=== PATIENT | male | born 1955 | race African-American/Black ===

== ENCOUNTER 2016-08-05 03:17 | Inpatient (IN) | payer OTHER ==
--- NOTE | ~2016-08-05 | HP ---
History And Physical [place] [id number] [facility] [place]. [address] NAME: MARLENE CONTRERAS JR : 53 STATUS : ADM IN [facility]#: [id number] AGE: 61 ADM/REG DATE : 08/05/16 MR#: [id number] REPORT SERV DATE: 08/05/16 DICTATED BY: SAMANTHA CHAUDHARY DATE: 08/05/16 REPORT STATUS : Draft TRANSCRIBED BY: MODAmari DATE: 08/05/16 DATE OF ADMISSION: 08/05/2016 REASON FOR ADMISSION: Angioedema. HISTORY: Mr. Contreras is a 61-year-old male who has hypertension, angioedema for the past 5 years, but remained on losartan who came to the ED today with the swelling of his lips and tongue for one day. The patient had recently been prescribed Zanaflex for hand swelling, which he attributed to having slept on his hand with inability to move his fingers. Upon arrival here, he received Benadryl and Solu-Medrol with some benefit. He says he did not know the cause of his first spell, but review of old record showed that he had been on lisinopril at that previous time. He does acknowledge that the spell was a whole lot worse than this particular episode, and he required intubation then. At the present time, he denies any pain, nausea, vomiting or dry mouth. He says his breathing is okay but does have difficulty speaking. He is able to swallow. No nausea or vomiting. No headaches. He did have some chest tightness earlier but has since resolved. Shortness of breath is also better than it was earlier, but he denies any cough, fever, or chills, although he may have had a subjective fever two days ago. The patient denies any gastrointestinal or genitourinary complaints. No bleeding. No focal neurologic complaints other than some numbness in the finger tips in the aforementioned hand. REVIEW OF SYSTEMS: Negative. PAST MEDICAL HISTORY: As mentioned above. History of hepatitis C, history of stroke. MEDICATIONS: Medication list is pending. We knew it included the losartan and the Zanaflex. ALLERGIES: PREVIOUS ALLERGIES KNOWN TO BE LISINOPRIL. FAMILY HISTORY: Positive for diabetes and hypertension. SOCIAL HISTORY: The patient denies tobacco, alcohol, or drugs. PHYSICAL EXAMINATION: VITAL SIGNS: On presentation, blood pressure 99/53, pulse 89, respirations 22, afebrile, and saturating 100%. GENERAL: Comfortable black male, oriented x3. No apparent distress. HEENT: Pupils are equal to light. Extraocular movements are intact. He had very swollen lips but actually normal internal mucous membranes. Tongue was normal. NECK: Revealed no jugular venous distention, carotid bruits, lymphadenopathy, or goiter. CARDIAC EXAM: Regular rate and rhythm. No murmurs, gallops, or rubs. LUNGS: Clear to auscultation bilaterally. Good excursion. ABDOMEN: Distended, tympanic. There was some dullness to percussion in the suprapubic area with tenderness in that location. EXTREMITIES: No cyanosis, clubbing, or edema. He had diminished pulses and capillary History And Physical [address] [address] NAME: MARLENE CONTRERAS JR : 53 STATUS : ADM IN [facility]#: [id number] AGE: 61 ADM/REG DATE : 08/05/16 MR#: [id number] REPORT SERV DATE: 08/05/16 DICTATED BY: SAMANTHA CHAUDHARY DATE: 08/05/16 REPORT STATUS : Draft TRANSCRIBED BY: JESSICA DATE: 08/05/16 refill. NEUROLOGIC: Normal sensory function in all four extremities. SKIN: Warm and dry. PSYCHIATRIC: Appropriate. LABORATORY: Sodium 134, potassium 3.7, chloride 97, bicarb 23, BUN 32, creatinine 3.9, glucose 90, albumin 3.0, calcium 6.9. White count 5000, H and H 01/28, platelets 177. ASSESSMENT AND PLAN: 1. Angioedema, possibly due to receptor blockers, anaphylaxis, hold all medications. Steroids to be given. H1 and H2 blockers have been initiated, but tenture of time is likely the best therapy. 2. Acute kidney injury versus progressive renal insufficiency. Creatinine was normal two years ago. The patient continues to be mildly volume depleted. We will hydrate him. I am concerned about the possibility of urinary obstruction and Huber catheter placement. Ultrasound will be done. We will check SPEP, sedimentation rate, and fractional excretion of sodium. Question whether the hepatitis C may be the source of his renal insufficiency or whether he may have been on some medications. Losartan obviously will be discontinued. We will follow expectantly and have Nephrology see him if indicated. We noticed he also has hypocalcemia, which may be due to secondary hypovitaminosis D with subsequent hypoparathyroidism. We will check PTH and vitamin D levels. 3. Anemia, Probably from his chronic kidney disease, although we should check reticulocyte count, iron, and B12 in addition to the aforementioned SPEP. SVETLANA/JESSICA Samantha Chaudhary M.D. / [id number] CC: Daniel Champagne M.D.
--- NOTE | ~2016-08-05 | CN ---
Consultation Report [facility] [address] [place]. [address] NAME: MARLENE CONTRERAS JR : 53 STATUS : ADM IN PAT#: [id number] AGE: 61 ADM/REG DATE : 08/05/16 MR#: [id number] REPORT SERV DATE: 08/06/16 DICTATED BY: DATE: REPORT STATUS : Draft TRANSCRIBED BY: MODL DATE: 08/05/16 DATE OF CONSULTATION: REQUESTING: Nola Harmon, nurse practitioner. REASON FOR CONSULTATION: Acute kidney injury versus progressive chronic kidney disease. HISTORY OF PRESENT ILLNESS: A very pleasant 61-year-old male patient presents to [facility] on 08/05/2016 for evaluation to hospitalist. He was recently initiated on Zanaflex which was initiated due to right upper extremity pain and swelling. According to his family, the patient fortunately developed an angioedema reaction, and as he progressively had lip and facial swelling with increasing difficulty breathing, he presented to [facility] for evaluation. He was aggressively dosed with Solu- Medrol and Benadryl and placed in an inpatient setting for further evaluation and support. We are asked to evaluate the patient as his serum creatinine is noted to be at 3.88 at time of request for evaluation. He is known to be chronically be maintained in the outpatient setting on an ARB/HCTZ and has previously according to dictations from Dr. Favian Patel been on an IRLANDA inhibitor which he unfortunately had "an allergic" reaction to. Creatinine baseline in 2014 appears to be sub 1.0, is at 3.88 this afternoon, and progressively down at 3.46 on evaluation with a CO2 of 21, magnesium 1.1 and a potassium of 4.1 at time of dictation. The patient has been initiated on normal saline fluid administration. He is awake and alert, sitting at the bedside. He has no respiratory difficulty but does have noticeable facial and lip swelling at point of evaluation. Renal ultrasound has been undertaken and is negative for acute findings with the exception of a right renal nonobstructing stone and benign right renal cyst. The patient's family is present during evaluation and participates in HPI. PAST MEDICAL HISTORY: Positive for hepatitis C, previous CVA, question of possible BPH. No reports of nausea, vomiting, or diarrhea. He is also known to have a positive history for hypertension, recent right upper extremity swelling and pain as reported by the patient during HPI. FAMILY HISTORY: Negative for chronic kidney disease or end-stage renal disease. SOCIAL HISTORY: No ETOH. No illicit drugs. Remote history of tobacco, smoking approximately 1 pack per day, multiple years ago. Has since stopped smoking greater than 20 years. ALLERGIES: HE LISTS ALLERGIES TO TIZANIDINE. MEDICATIONS: Active medications include ASA 81 mg daily, Neurontin 300 mg p.o. at bedtime, [place] 1 tablet p.o. t.i.d. p.r.n., losartan/HCTZ 1 tablet p.o. daily at 100/12.5, meloxicam 15 mg daily, Zanaflex 4 mg p.o. t.i.d. p.r.n. REVIEW OF SYSTEMS: Consultation Report [address] [place]. [address] NAME: MARLENE CONTRERAS JR : 53 STATUS : ADM IN [facility]#: [id number] AGE: 61 ADM/REG DATE : 08/05/16 MR#: [id number] REPORT SERV DATE: 08/06/16 DICTATED BY: DATE: REPORT STATUS : Draft TRANSCRIBED BY: MODL DATE: 08/05/16 Review of systems is completed. Please see HPI for pertinent details. PHYSICAL EXAMINATION: VITAL SIGNS: Blood pressure 174/90, respiratory rate 19, heart rate at 90 beats per minute and regular, 100% on room air, temperature 99.8 degrees. GENERAL: He is awake, alert, oriented x3, in no acute distress during evaluation. HEENT: Normocephalic and atraumatic. Noticeable swelling of his facial area particularly in his lips and tongue. He is in no respiratory distress on evaluation. NECK: Supple without thyromegaly. No JVD or mass. CHEST: Shows positive S1 and S2. No rubs or gallops. LUNGS: Diminished. Clear to auscultation throughout. Otherwise expansion normal effort. Normal bilaterally. GI: Examination shows positive bowel sounds in all four quadrants. No appreciable mass or tenderness. : Examination is deferred. EXTREMITIES: Show positive pulses to all four extremities. No clubbing, cyanosis nor edema. NEUROLOGIC: Appears to be grossly intact. Nonfocal. SKIN: Warm, dry, intact visualized surfaces. No rash, lesions, or ecchymosis. PSYCHIATRIC: He has appropriate mood and affect, and in no acute distress. LABORATORY DATA: Pertinent laboratories and imaging to this evaluation are as follows. Most recent electrolyte profile, sodium 132, potassium 4.1, chloride 100, CO2 of 21, BUN 34, creatinine 3.46, reflected GFR at 21 mL/minute. Glucose of 149, calcium 7.5, magnesium 1.1. Urine sodium 34, urine creatinine 64.6, urine urea at 206. Urinalysis negative for protein, glucose, ketones, small amount of blood, minimal bacteria and rare mucus. Renal ultrasound is negative for acute findings as listed in HPI. IMPRESSION AND PLAN: This is a 61-year-old, male patient, admitted to the Hospitalist Service for an acute occurrence of angioedema which is felt to be secondary to dosing of Zanaflex. He is chronically maintained on ARB/HCTZ and Mobic in the outpatient setting with labile hypertension, and he is noted to have experienced some hypotension during his inpatient stay with blood pressure readings as low as 99 systolic. He has had a renal ultrasound which reveals no acute findings. However, given his smoking history and his labile hypertension, we would question the possibility of renal artery stenosis, and given his difficulty with nocturnal voiding, we had questioned also some level of urinary retention. Placed patient on strict I's and Os. Check his postvoid residual and place Huber catheter if needed. We will check Doppler. Meloxicam and ARB/HCTZ have been withheld appropriately. The patient is on IV fluids. We will continue to defer those to the Primary Service at this time. This injury is likely ATN relative secondary to relative hypotension with concomitant ARB/HCTZ/NSAID usage. We are hopeful of renal recovery. The patient presents at this time in no acute need for hemodialysis. Measures as listed above. Follow with serial laboratories and modify based on clinical presentation of the patient's laboratory results. Further consultation with renal attending. We appreciate consultation. We are glad to follow. Consultation Report [address] [place]. [address] NAME: MARLENE CONTRERAS TIARA : 53 STATUS : ADM IN PAT#: [id number] AGE: 61 ADM/REG DATE : 08/05/16 MR#: [id number] REPORT SERV DATE: 08/06/16 DICTATED BY: DATE: REPORT STATUS : Draft TRANSCRIBED BY: MODL DATE: 08/05/16 /JESSICA Raghavendra Resee NP / [id number]
--- NOTE | ~2016-08-05 | IDS ---
Interim Discharge Summary [facility] [address] [place]. [address] NAME: MARLENE LONGORIA JR : 53 STATUS : ADM IN LOC[facility]IN [facility]#: [id number] AGE: 61 ADM/REG DATE : 08/05/16 MR#: [id number] REPORT SERV DATE: 08/10/16 DICTATED BY: JUANY ALMEIDA DATE: 08/09/16 REPORT STATUS : Draft TRANSCRIBED BY: MODL DATE: 08/09/16 ADMISSION DATE: 08/05/2016 DISCHARGE DATE: The patient was admitted to the Hospitalist Service. CONSULTANTS: Raghavendra Reese, nurse practitioner for store shopper, Dr. Rudy Gracia. INTERIM DISCHARGE DIAGNOSES: 1. Angioedema, resolved. 2. Alcohol withdrawal and delirium tremens. 3. Acute encephalopathy secondary to alcohol withdrawal, improved. 4. Acute kidney injury, improved. 5. Hypertension. 6. Anemia. 7. Hepatitis C. 8. Vitamin B deficiency. IMAGING AND DIAGNOSTICS: 1. 08/05/2016, renal ultrasound showed nonobstructing right renal stone and small benign right renal cyst, otherwise negative study. 2. Renal artery duplex on 08/06/2016 revealed kidneys appear symmetric, normal, and nonobstructive. No evidence of renal artery stenosis. Suggested slight increase in resistive indices, lower pole the kidneys certainly compatible with early onset medical parenchymal kidney disease. LABORATORY STUDIES: 1. Renal function panel on 08/09/2016 reveals a sodium 146, potassium 4.3, chloride 114, CO2 of 26, BUN 29, creatinine 1.4, GFR 62, glucose 82, calcium 8.5, magnesium 1.5, phosphorus 2.7, and albumin 2.8. Most recent CBC today 08/09/2016 reveals a white count of 3.4, hemoglobin 9.6, hematocrit 29, platelets 173,000. 2. 08/05/2016, the calcium level of 7.3 and intact parathyroid hormone of 135.7. 3. 08/05/2016 vitamin B level of 11. HISTORY OF PRESENT ILLNESS: For complete history, please refer to admission H and P by Dr. Favian Patel. Briefly, Mr. Longoria is a 61-year-old gentleman with known history of hypertension and angioedema in the past, presented to the emergency room on 08/05/2016 with lip swelling and facial swelling. He had recently been prescribed Zanaflex for some right hand swelling by his primary care provider, Dr. Daniel Champagne. He was previously on lisinopril and he had a worse apparent angioedema episode in the past requiring intubation. He was admitted to the Hospitalist Service for further evaluation and treatment. HOSPITAL COURSE: Mr. Longoria was admitted to a telemetry bed with the initial diagnosis of angioedema and acute kidney injury. He was ordered IV fluids, a renal ultrasound to rule out hydronephrosis. He was given subcu heparin for DVT prophylaxis. He was also placed on Interim Discharge Summary [address] [place]. [address] NAME: MARLENE LONGORIA JR : 53 STATUS : ADM IN LOC[facility]IN [facility]#: [id number] AGE: 61 ADM/REG DATE : 08/05/16 MR#: [id number] REPORT SERV DATE: 08/10/16 DICTATED BY: JUANY ALMEIDA DATE: 08/09/16 REPORT STATUS : Draft TRANSCRIBED BY: JESSICA DATE: 08/09/16 IV Solu-Medrol 125 mg q.8 hours along with Pepcid 20 mg IV q.12 hours, and Benadryl 25 mg IV q.6 hours scheduled. I initially saw Mr. Longoria in the afternoon of 08/05/2016. He reported that his lip swelling and facial swelling was improving. He denied any shortness of breath or chest pain or belly pain. He was eating and drinking without difficulty. He did note that his urine output was not as much as he usually had at home. Renal ultrasound results are as above. His blood pressure on this date was 177/80 after initially being hypotensive slightly in the emergency room with blood pressure of 99/53. His home medications were all held on admission. A consult was placed to Nephrology on the afternoon of 08/05/2016 for his creatinine level of 3.88. He was also given p.r.n. hydralazine IV. He was seen on the afternoon of 08/05/2016 by Nephrology who placed him on amlodipine for his hypertension. On the 08/06/2016, his IV steroids were tapered. Overall, Mr. Longoria had improved significantly. He was placed n.p.o. after midnight on the 08/06/2016 for renal artery ultrasound to rule out stenosis with his hypertension. Results are as above. On the 08/07/2016, in the early afternoon, Mr. Longoria's nurse mentioned that he pulled out his IV. He was noted walking up and down the tena. Mr. Longoria's sister was in the room and stated that he was very upset that the patient called her and he was outside the hospital stating that he was near the [facility] when in actuality he was likely outside the hospital looking at the [facility] mistaking it for the [facility]. Upon my reassessment of the patient, he had upper extremity tremors, he was very anxious, and after speaking with Mr. Longoria's sister, she admitted to the fact that Mr. Longoria drinks a lot. She states that he drinks at least a quart of gin or other hard liquor on a daily basis when in fact that he denied any alcohol intake when he was admitted through the emergency room. Therefore, alcohol withdrawal management protocol was started. In addition, his IV Benadryl, IV Pepcid, and IV prednisone were discontinued on this date. On the 08/08/2016, Mr. Longoria was cooperative, however, only oriented to himself and the year he was still confused as to the place. Mr. Longoria's sister was very concerned with the patient returning to her home in the current state. Hence, she was requesting some alcohol rehab for the patient at discharge. This was explained that this would need to be volunteering for the patient. On 08/09/2016, Mr. Loyds encephalopathy improved. He was alert and oriented to self and place. His angioedema had resolved. We were tapering his alcohol withdrawal protocol to low levels earlier in the day, and later in the afternoon, he was started on Librium 5 mg b.i.d. and Ativan was changed to p.r.n. with the discontinuation of the protocol with hopes that he will be discharged to home on 08/10/2016. He currently lives with his sister who is very supportive. Family has requested home health care for assistance with the patient at the time of discharge. Nephrology has signed off and have requested outpatient followup. We will start some vitamin B replacement today and continue his amlodipine for his hypertension. He will follow up with his primary care provider after discharge, Dr. Daniel Champagne, and again outpatient followup with Nephrology. EZ/JESSICA Nola Almeida, [facility]- / [id number] Interim Discharge Summary [address] [address] NAME: MARLENE LONGORIA JR : 53 STATUS : ADM IN PAT#: [id number] AGE: 61 ADM/REG DATE : 08/05/16 MR#: [id number] REPORT SERV DATE: 08/10/16 DICTATED BY: JUANY ALMEIDA DATE: 08/09/16 REPORT STATUS : Draft TRANSCRIBED BY: JESSICA DATE: 08/09/16 CC: Alice Gutierrez MARK
--- NOTE | ~2016-08-05 | DS ---
Discharge Summary [facility] [address] [place]. [address] NAME: MARLENE CONTRERAS JR : 53 STATUS : DIS IN PAT#: [id number] AGE: 61 ADM/REG DATE : 08/05/16 MR#: [id number] REPORT SERV DATE: 08/11/16 DICTATED BY: SAMANTHA CHAUDHARY DATE: 08/10/16 REPORT STATUS : Draft TRANSCRIBED BY: MODL DATE: 08/10/16 ADMISSION DATE: 08/05/2016 DISCHARGE DATE: 08/10/2016 PRINCIPAL DIAGNOSIS: Acute angioedema secondary to losartan versus Zanaflex. SECONDARY DIAGNOSES: Alcohol abuse with withdrawal and anemia, hypertension, acute kidney injury, resolved. HISTORY OF PRESENT ILLNESS: Please see my dictation on 08/05/2016. HOSPITAL COURSE: Please see interim summary by LEILA Naik on 08/09/2016. Subsequent hospital course, patient actually has already met the goals of discharge planning. He had been converted from Ativan to Librium and despite a major drop in the milligram, potency of the benzodiazepines from 2 mg of Ativan every 2 hours to 5 mg oral Librium b.i.d., the patient had no further alcohol withdrawal symptoms. As he had received intravenous Ativan the previous day p.r.n., he was changed over to a higher dose of Librium 25 t.i.d. with a taper down but is able to be released with other medications having been discontinued. He was, however, given Norvasc 10 mg daily for his hypertension but instructed not to take losartan anymore or Zanaflex. Thiamine could be obtained over the counter. Lortab was okay p.r.n. He will follow with Dr. Daniel Champagne in one to two weeks. SVETLANA/JESSICA Samantha Chaudhary M.D. / [id number] CC: Alice Gutierrez M.D.
[~2016-08-05 03:17] MED LIST: ENDOCET1 TA3 PO; LIPITOR40 PO; LISINOPRIL40 MG PO; MOBIC15 MG PO; VITC500 PO
[2016-08-05 04:08] LABS: BASOPHILS 0.2 %; BASOPHILS ABSOLUTE 0.01 10/3/uL (0.0-0.16); EOSINOPHILS 0.6 %; EOSINOPHILS ABSOLUTE 0.03 10/3/uL (0.0-0.53); HEMOGLOBIN 10.6 g/dL (13.6-17.8); IMMATURE GRANULOCYTES 0.2 %; IMMATURE GRANULOCYTES ABSOLUTE 0.01 10/3/uL (0.0-0.11); LYMPHOCYTES 37.7 %; LYMPHOCYTES ABSOLUTE 2.01 10/3/uL (0.67-4.30); MEAN CORPUS HGB CONC 34.1 g/dL (32.0-36.0); MEAN CORPUSCULAR VOLUME 96.9 fL (80-100); MONOCYTES 11.6 %; MONOCYTES ABSOLUTE 0.62 10/3/uL (0.21-1.20); NEUTROPHILS 49.7 %; NEUTROPHILS ABSOLUTE 2.65 10/3/uL (2.02-8.40); RBC DISTRIBUTION WIDTH 14.2 % (12.0-16.0)
[2016-08-05 04:11] LABS: ER CBC TAT 0 Hrs 10 Mins; HEMATOCRIT 31.1 % (40.0-51.0); MANUAL DIFF NO %; PLATELET COUNT 177 10/3/uL (150-400); RED CELL COUNT 3.21 10/6/uL (4.7-6.1); WHITE BLOOD CELLS 5.3 10/3/uL (4.5-10.5)
[2016-08-05 04:24] LABS: ALKALINE PHOSPHATASE 83 U/L (45-117); CHLORIDE, SERUM 97 MMOL/L (96-112); CO2 (CARBON DIOXIDE) 23 MMOL/L (24-34); GLUCOSE, SERUM 90 MG/DL (60-99); SGPT(ALT) 32 U/L (5-65); TOTAL BILIRUBIN 0.9 MG/DL (0-1.2); TOTAL PROTEIN 7.3 G/DL (6.0-8.5)
[2016-08-05 04:26] LABS: A/G RATIO 0.7 (0.7-1.9); BUN (BLOOD UREA NITROGEN) 32 MG/DL (6-23); CALCIUM, SERUM 6.9 MG/DL (8.5-10.4); CREATININE 3.88 MG/DL (0.70-1.30); GFR AFRICAN AMERICAN 18 ML/MIN (>=60); GFR NON AFRICAN AMERICAN 16 ML/MIN (>=60); GLOBULIN 4.3 G/DL (2.5-4.1); POTASSIUM, SERUM 3.7 MMOL/L (3.5-5.3); SGOT(AST) 39 U/L (5-40); SODIUM, SERUM 131 MMOL/L (135-148)
[2016-08-05 08:43] LABS: RETICULOCYTE COUNT 2.2 % (0.5-2.5); RETICULOCYTE COUNT ABSOLUTE 67.7 10/3/uL (20.2-119.8)
[2016-08-05 08:58] LABS: T PROTEIN (ELECT)(NOT OR 7.2 G/DL (6.0-8.5)
[2016-08-05 09:19] LABS: INTACT PTH (ICMA) 135.7 PG/ML (10.0-65.0)
[2016-08-05 09:22] LABS: % IRON SAT 15 % (20-50); FERRITIN 294 NG/ML (26-388); IRON BINDING CAPACITY 242 MCG/DL (250-450); IRON, SERUM 37 MCG/DL (35-150)
[2016-08-05] MEDS ORDERED: HYZAAR1 TAB PO (11:43)
[2016-08-05] MEDS ORDERED: NEUR300 PO (11:43)
[2016-08-05] MEDS ORDERED: MOBIC15 MG PO (11:43)
[2016-08-05] MEDS ORDERED: ZANAFLEX 4 MG TA4 MG PO (11:43)
[2016-08-05] MEDS ORDERED: NORCO1 TAB PO (11:44)
[2016-08-05] MEDS ORDERED: ASAB PO (11:44)
[2016-08-05 11:54] LABS: ASCORBIC ACID (UR NOT ORDER) NEG (NEG); BILIRUBIN, URINE NEGATIVE (NEG); KETONE, URINE NEGATIVE (NEG); LEUKOCYTE ESTERASE(NOT OR NEG (NEG); WBC (NOT ORDERED) (RFLEX) 1 (0-5)
[2016-08-05 12:09] LABS: CREATININE, URINE 64.6 MG/DL
[2016-08-05 17:28] LABS: BUN (BLOOD UREA NITROGEN) 34 MG/DL (6-23); CALCIUM, SERUM 7.5 MG/DL (8.5-10.4); CHLORIDE, SERUM 100 MMOL/L (96-112); CO2 (CARBON DIOXIDE) 21 MMOL/L (24-34); CREATININE 3.46 MG/DL (0.70-1.30); GFR AFRICAN AMERICAN 21 ML/MIN (>=60); GFR NON AFRICAN AMERICAN 18 ML/MIN (>=60); POTASSIUM, SERUM 4.1 MMOL/L (3.5-5.3); SODIUM, SERUM 132 MMOL/L (135-148)
[2016-08-05 17:29] LABS: GLUCOSE, SERUM 149 MG/DL (60-99)
[2016-08-06 06:41] LABS: A/G RATIO 0.7 (0.7-1.9); ALBUMIN 3.3 G/DL (3.5-5.0); ALKALINE PHOSPHATASE 90 U/L (45-117); BUN (BLOOD UREA NITROGEN) 36 MG/DL (6-23); CALCIUM, SERUM 8.1 MG/DL (8.5-10.4); CHLORIDE, SERUM 103 MMOL/L (96-112); CO2 (CARBON DIOXIDE) 17 MMOL/L (24-34); GFR AFRICAN AMERICAN 26 ML/MIN (>=60); GFR NON AFRICAN AMERICAN 23 ML/MIN (>=60); GLUCOSE, SERUM 137 MG/DL (60-99); PHOSPHORUS, SERUM 3.7 MG/DL (2.5-4.5); POTASSIUM, SERUM 4.4 MMOL/L (3.5-5.3); SGOT(AST) 35 U/L (5-40); SGPT(ALT) 30 U/L (5-65); SODIUM, SERUM 134 MMOL/L (135-148); TOTAL BILIRUBIN 0.6 MG/DL (0-1.2); TOTAL PROTEIN 8.3 G/DL (6.0-8.5)
[2016-08-06 06:43] LABS: BASOPHILS 0.2 %; BASOPHILS ABSOLUTE 0.01 10/3/uL (0.0-0.16); EOSINOPHILS 0 %; HEMATOCRIT 31.2 % (40.0-51.0); HEMOGLOBIN 10.6 g/dL (13.6-17.8); IMMATURE GRANULOCYTES 0.3 %; IMMATURE GRANULOCYTES ABSOLUTE 0.02 10/3/uL (0.0-0.11); LYMPHOCYTES 12.8 %; LYMPHOCYTES ABSOLUTE 0.84 10/3/uL (0.67-4.30); MEAN CORPUSCULAR VOLUME 94.3 fL (80-100); MEAN PLATELET VOLUME 10.6 fL (9.2-13.0); MONOCYTES 5.6 %; MONOCYTES ABSOLUTE 0.37 10/3/uL (0.21-1.20); NEUTROPHILS 81.1 %; NEUTROPHILS ABSOLUTE 5.33 10/3/uL (2.02-8.40); PLATELET COUNT 209 10/3/uL (150-400); RBC DISTRIBUTION WIDTH 14.2 % (12.0-16.0); RED CELL COUNT 3.31 10/6/uL (4.7-6.1); WHITE BLOOD CELLS 6.6 10/3/uL (4.5-10.5)
[2016-08-06 06:44] LABS: CREATININE 2.84 MG/DL (0.70-1.30)
[2016-08-06 06:50] LABS: MANUAL DIFF NO %
[2016-08-06 12:11] LABS: A/G 0.89 RATIO (0.9-2.10); ALB RELATIVE % 47.2 % (60.0-89.0); ALPHA 1 (ELECTRO) 0.26 GM/DL (0.1-0.4); ALPHA 1 RELAT % (NOT ORD) 3.6 % (1.0-4.0); ALPHA 2 (ELECTRO) 1.03 GM/DL (0.5-1.10); ALPHA 2 RELAT % 14.3 % (4.5-26.0); BETA GLOBULIN (SPE) 0.87 GM/DL (0.60-1.30); BETA RELATIVE % 12.1 % (9.0-22.0); GAMMA GLOBULIN (SPE) 1.64 G/DL (0.70-1.60); GAMMA RELAT % 22.8 % (6.0-22.0)
[2016-08-07 06:23] LABS: BASOPHILS 0 %; EOSINOPHILS 0 %; HEMATOCRIT 28.3 % (40.0-51.0); HEMOGLOBIN 9.4 g/dL (13.6-17.8); IMMATURE GRANULOCYTES 0.2 %; IMMATURE GRANULOCYTES ABSOLUTE 0.01 10/3/uL (0.0-0.11); LYMPHOCYTES 9.3 %; LYMPHOCYTES ABSOLUTE 0.51 10/3/uL (0.67-4.30); MANUAL DIFF NO %; MEAN CORPUS HGB CONC 33.2 g/dL (32.0-36.0); MEAN CORPUSCULAR HEMOGLOB 32.1 pg (26.0-34.0); MEAN CORPUSCULAR VOLUME 96.6 fL (80-100); MEAN PLATELET VOLUME 10.8 fL (9.2-13.0); MONOCYTES 7.3 %; NEUTROPHILS 83.2 %; NEUTROPHILS ABSOLUTE 4.57 10/3/uL (2.02-8.40); PLATELET COUNT 163 10/3/uL (150-400); RBC DISTRIBUTION WIDTH 14.6 % (12.0-16.0); RED CELL COUNT 2.93 10/6/uL (4.7-6.1); WHITE BLOOD CELLS 5.5 10/3/uL (4.5-10.5)
[2016-08-07 06:32] LABS: ALBUMIN 3.1 G/DL (3.5-5.0); CALCIUM, SERUM 7.9 MG/DL (8.5-10.4); CHLORIDE, SERUM 110 MMOL/L (96-112); GLUCOSE, SERUM 132 MG/DL (60-99); PHOSPHORUS, SERUM 3.3 MG/DL (2.5-4.5); SODIUM, SERUM 140 MMOL/L (135-148)
[2016-08-07 06:37] LABS: BUN (BLOOD UREA NITROGEN) 45 MG/DL (6-23); CO2 (CARBON DIOXIDE) 22 MMOL/L (24-34); CREATININE 2.16 MG/DL (0.70-1.30); GFR AFRICAN AMERICAN 37 ML/MIN (>=60); GFR NON AFRICAN AMERICAN 32 ML/MIN (>=60)
[2016-08-08 06:21] LABS: BASOPHILS 0 %; EOSINOPHILS 0 %; HEMATOCRIT 28.6 % (40.0-51.0); HEMOGLOBIN 9.3 g/dL (13.6-17.8); LYMPHOCYTES 15.1 %; LYMPHOCYTES ABSOLUTE 0.55 10/3/uL (0.67-4.30); MEAN CORPUS HGB CONC 32.5 g/dL (32.0-36.0); MEAN CORPUSCULAR HEMOGLOB 31.8 pg (26.0-34.0); MEAN CORPUSCULAR VOLUME 97.9 fL (80-100); MEAN PLATELET VOLUME 10.4 fL (9.2-13.0); MONOCYTES 11.8 %; MONOCYTES ABSOLUTE 0.43 10/3/uL (0.21-1.20); NEUTROPHILS 73.1 %; NEUTROPHILS ABSOLUTE 2.66 10/3/uL (2.02-8.40); PLATELET COUNT 167 10/3/uL (150-400); RBC DISTRIBUTION WIDTH 14.9 % (12.0-16.0); RED CELL COUNT 2.92 10/6/uL (4.7-6.1); WHITE BLOOD CELLS 3.6 10/3/uL (4.5-10.5)
[2016-08-08 06:23] LABS: ALBUMIN 3.1 G/DL (3.5-5.0); BUN (BLOOD UREA NITROGEN) 36 MG/DL (6-23); CALCIUM, SERUM 8.4 MG/DL (8.5-10.4); CHLORIDE, SERUM 112 MMOL/L (96-112); CO2 (CARBON DIOXIDE) 23 MMOL/L (24-34); GFR AFRICAN AMERICAN 57 ML/MIN (>=60); GFR NON AFRICAN AMERICAN 49 ML/MIN (>=60); GLUCOSE, SERUM 99 MG/DL (60-99); PHOSPHORUS, SERUM 3.4 MG/DL (2.5-4.5); POTASSIUM, SERUM 4.5 MMOL/L (3.5-5.3); SODIUM, SERUM 143 MMOL/L (135-148)
[2016-08-08 06:27] LABS: MANUAL DIFF NO %
[2016-08-09 06:20] LABS: BASOPHILS 0 %; EOSINOPHILS 0.3 %; EOSINOPHILS ABSOLUTE 0.01 10/3/uL (0.0-0.53); HEMOGLOBIN 9.6 g/dL (13.6-17.8); IMMATURE GRANULOCYTES 0.3 %; IMMATURE GRANULOCYTES ABSOLUTE 0.01 10/3/uL (0.0-0.11); LYMPHOCYTES 41.9 %; LYMPHOCYTES ABSOLUTE 1.42 10/3/uL (0.67-4.30); MEAN CORPUS HGB CONC 33.1 g/dL (32.0-36.0); MEAN CORPUSCULAR HEMOGLOB 32.4 pg (26.0-34.0); MONOCYTES 12.4 %; MONOCYTES ABSOLUTE 0.42 10/3/uL (0.21-1.20); NEUTROPHILS 45.1 %; NEUTROPHILS ABSOLUTE 1.53 10/3/uL (2.02-8.40); PLATELET COUNT 173 10/3/uL (150-400); RBC DISTRIBUTION WIDTH 14.9 % (12.0-16.0); RED CELL COUNT 2.96 10/6/uL (4.7-6.1); WHITE BLOOD CELLS 3.4 10/3/uL (4.5-10.5)
[2016-08-09 06:22] LABS: MANUAL DIFF NO %
[2016-08-09 06:33] LABS: ALBUMIN 2.8 G/DL (3.5-5.0); BUN (BLOOD UREA NITROGEN) 29 MG/DL (6-23); CALCIUM, SERUM 8.5 MG/DL (8.5-10.4); CHLORIDE, SERUM 114 MMOL/L (96-112); CO2 (CARBON DIOXIDE) 26 MMOL/L (24-34); GFR AFRICAN AMERICAN 62 ML/MIN (>=60); GFR NON AFRICAN AMERICAN 53 ML/MIN (>=60); GLUCOSE, SERUM 82 MG/DL (60-99); PHOSPHORUS, SERUM 2.7 MG/DL (2.5-4.5); POTASSIUM, SERUM 4.3 MMOL/L (3.5-5.3); SODIUM, SERUM 146 MMOL/L (135-148)
[2016-08-10 06:17] LABS: BASOPHILS 0 %; EOSINOPHILS 0.6 %; EOSINOPHILS ABSOLUTE 0.02 10/3/uL (0.0-0.53); HEMATOCRIT 30.3 % (40.0-51.0); HEMOGLOBIN 9.8 g/dL (13.6-17.8); IMMATURE GRANULOCYTES 0.3 %; IMMATURE GRANULOCYTES ABSOLUTE 0.01 10/3/uL (0.0-0.11); LYMPHOCYTES 33.3 %; LYMPHOCYTES ABSOLUTE 1.09 10/3/uL (0.67-4.30); MEAN CORPUS HGB CONC 32.3 g/dL (32.0-36.0); MEAN PLATELET VOLUME 9.8 fL (9.2-13.0); MONOCYTES 16.8 %; MONOCYTES ABSOLUTE 0.55 10/3/uL (0.21-1.20); PLATELET COUNT 183 10/3/uL (150-400); RBC DISTRIBUTION WIDTH 14.8 % (12.0-16.0); RED CELL COUNT 3.06 10/6/uL (4.7-6.1); WHITE BLOOD CELLS 3.3 10/3/uL (4.5-10.5)
[2016-08-10 06:22] LABS: MANUAL DIFF NO %
[2016-08-10 06:40] LABS: BUN (BLOOD UREA NITROGEN) 23 MG/DL (6-23); CHLORIDE, SERUM 110 MMOL/L (96-112); CO2 (CARBON DIOXIDE) 25 MMOL/L (24-34); CREATININE 1.25 MG/DL (0.70-1.30); GFR AFRICAN AMERICAN 71 ML/MIN (>=60); GFR NON AFRICAN AMERICAN 61 ML/MIN (>=60); GLUCOSE, SERUM 91 MG/DL (60-99); POTASSIUM, SERUM 4.4 MMOL/L (3.5-5.3); SODIUM, SERUM 143 MMOL/L (135-148)
[2016-08-10] MEDS ORDERED: NORV10 PO (11:25)
[2016-08-10] MEDS ORDERED: L5 PO (11:27)
[2016-08-10] MEDS ORDERED: D 5000 PO (11:36)
[2016-08-10] MEDS ORDERED: B1100 PO (11:37)
[2016-08-10] MEDS ORDERED: NORCO1 TAB PO (11:38)
== END 2016-08-10 14:08 | disposition home or self-care (01) | DRG 918 ==
LOC: ER 03:17 → 2SO 05:10
PROVIDERS: Internal Medicine; Nurse Practitioner; Nurse Practitioner Acute Care
DX: T46.5X5A Adverse effect of other antihypertensive drugs, initial encounter (principal); N17.9 Acute kidney failure, unspecified; F10.231 Alcohol dependence with withdrawal delirium; I95.9 Hypotension, unspecified; E87.1 Hypo-osmolality and hyponatremia; E83.51 Hypocalcemia; G31.2 Degeneration of nervous system due to alcohol; T78.3XXA Angioneurotic edema, initial encounter; T42.8X5A Adverse effect of antiparkinsonism drugs and other central muscle-tone depressants, initial encounter; N28.1 Cyst of kidney, acquired; N20.0 Calculus of kidney; N18.9 Chronic kidney disease, unspecified; I12.9 Hypertensive chronic kidney disease with stage 1 through stage 4 chronic kidney disease, or unspecified chronic kidney disease; D63.1 Anemia in chronic kidney disease; B19.20 Unspecified viral hepatitis C without hepatic coma; N40.0 Benign prostatic hyperplasia without lower urinary tract symptoms; Z88.8 Allergy status to other drugs, medicaments and biological substances; Z83.3 Family history of diabetes mellitus; Z82.49 Family history of ischemic heart disease and other diseases of the circulatory system; Z86.73 Personal history of transient ischemic attack (TIA), and cerebral infarction without residual deficits
CPT/HCPCS: 76775; 80048; 80053; 80069; 81001; 82306; 82570; 82607; 82728; 83540; 83550; 83735; 83970; 84155; 84165; 84300; 84540; 85025; 85045; 85652; 93975; 96372; 96374; 96375; 99291; A9270-GY; J0360; J1200; J2930; J3411; J3475